=== PATIENT | female | born 1995 | race Two or more races ===

== ENCOUNTER 2024-12-08 09:05 | Outpatient (CLI) | payer OTHER | END 2024-12-08 09:06 | disposition home or self-care (01) | LOC: PRENATAL 09:05 | PROVIDERS: ATTEND Obstetrics & Gynecology Maternal & Fetal Medicine | DX: O44.00 Complete placenta previa NOS or without hemorrhage, unspecified trimester (principal); O36.1999 Maternal care for other isoimmunization, unspecified trimester, other fetus; O34.40 Maternal care for other abnormalities of cervix, unspecified trimester; Z3A.19 19 weeks gestation of pregnancy ==

== ENCOUNTER 2025-03-08 10:20 | Outpatient (CLI) | payer OTHER | END 2025-03-08 10:21 | disposition home or self-care (01) | LOC: PRENATAL 10:20 | PROVIDERS: ATTEND Obstetrics & Gynecology Maternal & Fetal Medicine | DX: O26.849 Uterine size-date discrepancy, unspecified trimester (principal); O36.8199 Decreased fetal movements, unspecified trimester, other fetus; O36.1999 Maternal care for other isoimmunization, unspecified trimester, other fetus; O34.40 Maternal care for other abnormalities of cervix, unspecified trimester; O32.9XX0 Maternal care for malpresentation of fetus, unspecified, not applicable or unspecified; Z3A.33 33 weeks gestation of pregnancy ==

== ENCOUNTER 2025-04-25 17:47 | Inpatient (IN) | payer OTHER ==
[~2025-04-25] VITALS: Ht 162.6 cm; Wt 84.8 kg
[2025-04-25 18:29] VITALS: BP 118/80
[2025-04-25 19:08] LABS: BASO % 0.2 % (0.1-1.2); EOS # 0.02 (0.04-0.54); EOS % 0.2 % (0.7-7.0); LYMPH # 0.85 (1.18-3.74); LYMPH % 9.6 % (19.3-53.1); MEAN PLATELET VOLUME 12.00 fl (9.4-12.4); MONO # 0.64 (0.24-0.82); MONO % 7.2 % (4.7-12.5); NEUT # 7.33 (1.56-6.13); NEUT % 82.4 % (34.0-71.1); RED CELL DISTRIBUTION WIDTH 15.2 % (11.6-14.4)
[2025-04-25 19:10] LABS: URINE APPEARANCE Clear; URINE BILIRRUBIN Negative (NEGATIVE); URINE BLOOD Negative; URINE COLOR Yellow; URINE KETONE Negative (NEGATIVE); URINE LEUKOCYTE Moderate; URINE NITRATE Negative; URINE PROTEIN Negative (NEGATIVE); URINE UROBILINOGEN 0.2 E.U./dl
[2025-04-25 19:11] LABS: URINE BACTERIA 358.6 uL (0.0-1933); URINE EPITHELIAL CELLS 4.9 uL (0.0-38.8); URINE WBC 52.7 uL (0.0-23.2)
[2025-04-25 19:23] LABS: URINE CAST 0.00 uL (0.0-1.40); URINE GLUCOSE 500 MG/DL (NEGATIVE); URINE RBC 0.7 uL (0.0-20.8)
[2025-04-25 19:30] LABS: INR 0.94
[2025-04-25] MEDS ORDERED: AMPICILLIN SODIUM 2,000 MG VIAL IV SCH (19:30)
[2025-04-25] MEDS ORDERED: RINGERS SOLUTION,LACTATED 1,000 ML IV SCH (19:30)
[2025-04-25 20:26] VITALS: BP 110/64
[2025-04-25] MEDS ORDERED: MISOPROSTOL 25 MCG TABLET VAG STA (21:04)
[2025-04-25] MEDS ORDERED: MORPHINE SULFATE 4 MG/ML VIAL IV PRN (22:30)
[2025-04-25 23:39] VITALS: BP 97/56; O2SAT 100
[2025-04-26] MEDS ORDERED: AMPICILLIN SODIUM 2,000 MG VIAL IV SCH
[2025-04-26 03:37] VITALS: BP 130/59
[2025-04-26 07:44] VITALS: BP 112/80
[2025-04-26 07:50] VITALS: BP 119/74
[2025-04-26 08:00] VITALS: BP 111/64
[2025-04-26] MEDS ORDERED: OXYTOCIN 1,000 ML IV SCH (08:15)
[2025-04-26] MEDS ORDERED: CHLORHEXIDINE GLUCONATE 120 ML BOTTLE TOP SCH (08:15)
[2025-04-26] MEDS ORDERED: ACETAMINOPHEN 500 MG GEL..CAP PO PRN (08:15)
[2025-04-26] MEDS ORDERED: LIDOCAINE HCL 1% 10ML VIAL IJ ONE (08:30)
[2025-04-26] MEDS ORDERED: ERYTHROMYCIN BASE OPHT 1GM EACH TUBE OP ONE (08:30)
[2025-04-26] MEDS ORDERED: PNV,CALCIUM 72/IRON/FOLIC ACID 1 TAB TABLET PO SCH (09:00)
[2025-04-26 09:43] VITALS: BP 127/73
[2025-04-26 11:59] LABS: BASO % 0.1 % (0.1-1.2); EOS # 0.00 (0.04-0.54); EOS % 0.0 % (0.7-7.0); LYMPH # 0.68 (1.18-3.74); LYMPH % 4.1 % (19.3-53.1); MEAN PLATELET VOLUME 12.20 fl (9.4-12.4); MONO # 1.07 (0.24-0.82); MONO % 6.5 % (4.7-12.5); NEUT # 14.70 (1.56-6.13); NEUT % 88.9 % (34.0-71.1); RED CELL DISTRIBUTION WIDTH 15.1 % (11.6-14.4)
[2025-04-26 17:48] VITALS: BP 117/76
[2025-04-27 00:46] VITALS: BP 133/80
[2025-04-27 08:00] VITALS: BP 117/76
[2025-04-27] MEDS ORDERED: HYDROCORTISONE ACETATE 25 MG/SUPP.RECT SUPP.RECT RECTAL SCH (13:00)
[2025-04-27 17:07] VITALS: BP 113/73
[2025-04-28 00:41] VITALS: BP 117/77
[2025-04-28 08:00] VITALS: BP 117/81
== END 2025-04-28 16:05 | disposition home or self-care (01) | DRG 807 ==
LOC: LDR 17:47 → OB/GYN 04-26 07:52
PROVIDERS: ADMIT Obstetrics & Gynecology; ATTEND Obstetrics & Gynecology
PROC: 3E0P7VZ Introduction of Hormone into Female Reproductive, Via Natural or Artificial Opening (ICD-10-PCS; 2025-04-25)
PROC: 4A1HXCZ Monitoring of Products of Conception, Cardiac Rate, External Approach (ICD-10-PCS; 2025-04-25)
PROC: 10E0XZZ Delivery of Products of Conception, External Approach (ICD-10-PCS; principal; 2025-04-26)
PROC: 0HQ9XZZ Repair Perineum Skin, External Approach (ICD-10-PCS; 2025-04-26)
PROC: 0UQG7ZZ Repair Vagina, Via Natural or Artificial Opening (ICD-10-PCS; 2025-04-26)
PROC: 3E033VJ Introduction of Other Hormone into Peripheral Vein, Percutaneous Approach (ICD-10-PCS; 2025-04-26)
DX: O70.0 First degree perineal laceration during delivery (principal); Z37.0 Single live birth; O99.824 Streptococcus B carrier state complicating childbirth; Z3A.39 39 weeks gestation of pregnancy